=== PATIENT | female | born 1995 | race Caucasian/White ===

== ENCOUNTER 2018-11-01 09:50 | Inpatient (IN) ==
[2018-11-01] MEDS ORDERED: LIDOCAINE HCL 50 ML VIAL PERI PRN (10:54)
[2018-11-01] MEDS ORDERED: OXYTOCIN/DEXTROSE 5%-WATER 30 UNITS/500 ML BAG IV ONE ×2 (10:54→19:42)
[2018-11-01] MEDS ORDERED: RINGER'S SOLUTION,LACTATED 1,000 ML IV ONE (10:54)
[2018-11-01] MEDS ORDERED: ONDANSETRON HCL/PF 2 MG/ML VIAL IV PRN ×2 (10:54→12:09)
[2018-11-01] MEDS ORDERED: BUPIVACAINE HCL/0.9 % NACL/PF 250 ML EP PRN ×2 (12:09→12:35)
[2018-11-01] MEDS ORDERED: NALOXONE HCL 1 MG/1 ML SYRG IV PRN (12:09)
[2018-11-01] MEDS ORDERED: fentaNYL CITRATE/PF 50 MCG/ML AMPUL IT SCH (12:15)
[2018-11-01] MEDS: DEXTROSE 5%-LACTATED RINGERS 1,000 ML IV PRN ×2 (12:43→18:27)
[2018-11-01] MEDS ORDERED: BUPIVACAINE HCL/PF 30 ML VIAL EP SCH (12:45)
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
--- NOTE | 2018-11-01 12:55 | PN ---
Progess Note - Interim Date: 11/01/18 Time: 12:53 Narrative: 11/01/18 12:53 Seen at 1145 Patient requesting epidural Vital signs stable. AROM-clear at approximately 1145 FHT: 130 baseline, reassuring contractions q 2-3 min Cervix: 4/80/-2 Impression: Intrauterine at 39-1/7 weeks in labor Plan: Continue present plan
--- NOTE | 2018-11-01 13:07 | ANES ---
Anesthesia Procedure Note Procedure Note: ANESTHESIA PROCEDURE NOTE Date of Procedure: 11/01/2018. Time of procedure: 1250. Performed by: Soren Reynolds CRNA Rn Home Health: None. Preprocedure diagnosis: Active labor. Post procedure diagnosis: Same. Procedure: Insertion of labor epidural. Indications: The patient is a 23 -year-old female in active labor requesting labor epidural for pain management. Findings: See below. Details of the procedure: The patient was placed in a sitting position. DuraPrep as well as Betadine swabs X3 was applied to the patient's back. Patient was then draped in a sterile fashion. Lidocaine 1% was infiltrated to the skin and subcutaneous tissues at the level of the L3-4 interspace. The epidural space was identified using a 18-gauge Tuohy needle with [id number] technique. Epidural catheter was inserted to a depth of 9 centimeters at skin. Negative test dose was elicited using 3 mL of 1.5% preservative-free lidocaine plus epinephrine 1 200,000. The epidural catheter was then taped and secured in place. A loading dose of 8 mL of 0.25% preservative-free bupivacaine was administered to the epidural catheter after negative aspiration for blood and CSF. EBL: Minimal. Fluids: N/A. Specimen: N/A. Post procedure condition: The patient tolerated the procedure well. No complications were noted. Thank you for this consultation. Soren Reynolds CRNA
--- NOTE | 2018-11-01 13:08 | ANES ---
Post Anesthesia Assessment - Vital Signs Vitals: Last Vital Signs Temp 36.7 C 11/01/18 11:36 Pulse 90 11/01/18 11:36 Resp 16 11/01/18 11:36 BP 120/79 11/01/18 11:36 Pulse Ox 99 11/01/18 11:36 Airway Patency: Normal - Mental Status Level Of Consciousness: Awake - N/V Assessment Nausea/Vomiting Presence: None Dehydration:: No
[2018-11-01 16:33] LABS: Cocaine Ur Negative (NEGATIVE); Urine Barbiturate Negative (NEGATIVE); Urine Benzodiazepines Negative (NEGATIVE); Urine Opiates Negative (NEGATIVE); Urine PCP Negative (NEGATIVE); Urine THC Negative (NEGATIVE)
--- NOTE | 2018-11-01 18:17 | PN ---
Progess Note - Interim Date: 11/01/18 Time: 18:16 Narrative: 11/01/18 18:16 Patient comfortable with epidural Vital signs stable. Pitocin at 8 mu/min. FHT:150 baseline, reassuring Contractions q 2-3 min Cervix: 8/90/0 Impression: Intrauterine at 39-1/7 weeks in labor Plan: Anticipate normal spontaneous vaginal delivery within the next hour
[2018-11-01] MEDS ORDERED: oxyCODONE HCL/ACETAMINOPHEN 1 TAB TABLET PO PRN ×4 (18:20→19:42)
[2018-11-01] MEDS ORDERED: BENZOCAINE/MENTHOL 81 SPRAY CAN TP PRN ×2 (18:20→19:42)
[2018-11-01] MEDS ORDERED: GLYCERIN/WITCH HAZEL LEAF 40 APPL BOX TP PRN ×2 (18:20→19:42)
[2018-11-01] MEDS ORDERED: BISACODYL 10 MG SUPP.RECT RC PRN ×2 (18:20→19:42)
[2018-11-01] MEDS ORDERED: IBUPROFEN 800 MG TABLET PO PRN (18:20)
[2018-11-01] MEDS ORDERED: SENNOSIDES 8.6 MG TABLET PO PRN ×2 (18:20→19:42)
--- NOTE | 2018-11-01 19:44 | OR ---
Operative Report - Dictated Report Narrative: Spontaneous vaginal delivery of viable female crying on mother's abdomen born at 1922 on 11/01/2017 with Apgars 9 and 9, weighing 3230 g in ALYSSA position. Cord clamping delayed approximately 1 minute Placenta delivered complete, intact, with three vessel cord Estimated blood loss: less than 50 ml Anesthesia: epidural Lacerations: None History for MU Definition: * The number of deliveries resulting in a live the patient experienced prior to current hospitalization * The previous delivery of live twins or any live multiple gestation is considered one live event. *If primagravida or nulliparous is documented select zero for the number of previous live births. Live Events: 1
[2018-11-01] MEDS ORDERED: DOCUSATE SODIUM 100 MG CAPSULE PO SCH (21:00)
[2018-11-01] MEDS: IBUPROFEN 800 MG TABLET PO PRN (21:53)
[2018-11-01] MEDS: DOCUSATE SODIUM 100 MG CAPSULE PO SCH (22:30)
[2018-11-02] MEDS ORDERED: RHO(D) IMMUNE GLOBULIN 1,500 UNIT SYRINGE IM ONE (02:20)
[2018-11-02] MEDS: IBUPROFEN 800 MG TABLET PO PRN ×2 (04:07→17:15)
[2018-11-02] MEDS: DOCUSATE SODIUM 100 MG CAPSULE PO SCH ×2 (12:19→21:38)
--- NOTE | 2018-11-02 18:16 | PN ---
Subjective - Date and Time Seen Date: 11/02/18 Time: 18:15 Objective - Vitals Vitals: Last Vital Signs Temp 36.5 C 11/02/18 14:15 Pulse 83 11/02/18 14:15 Resp 18 11/02/18 14:15 BP 96/51 11/02/18 14:15 Pulse Ox 98 11/02/18 14:15 Patient denies complaints. Lochia wnl Abdomen - soft, nontender Uterus - firm, at umbilicus - 1 No calf tenderness Impression: day #1 - s/p spontaneous vaginal delivery. Plan: Continue routine care Cauti Physician Documentation - Urinary Catheter Management Urethral (Matias) Date of Insertion: 11/01/18 Time of Insertion: 13:48 Assessment/Plan - Problems/Diagnosis (1) Labor established Problem: Acute (2) Asthma Problem: Acute Qualifiers: Asthma severity: mild Asthma persistence: intermittent Asthma complication type: uncomplicated Qualified Code(s): J45.20 - Mild intermittent asthma, uncomplicated (3) Anemia Problem: Acute Qualifiers: Anemia type: iron deficiency Iron deficiency anemia type: inadequate dietary iron intake Qualified Code(s): D50.8 - Other iron deficiency anemias
[2018-11-03] MEDS: IBUPROFEN 800 MG TABLET PO PRN (08:15)
[2018-11-03] MEDS: DOCUSATE SODIUM 100 MG CAPSULE PO SCH (08:15)
[2018-11-03 08:55] VITALS: BP 121/76
--- NOTE | 2018-11-03 11:55 | PN ---
Subjective - Date and Time Seen Date: 11/03/18 Time: 11:54 Objective - Vitals Vitals: Last Vital Signs Temp 36.7 C 11/03/18 08:30 Pulse 78 11/03/18 08:30 Resp 18 11/03/18 08:30 BP 121/76 11/03/18 08:30 Pulse Ox 99 11/03/18 08:30 Patient denies complaints. Breast-feeding. Lochia wnl Abdomen - soft, nontender Uterus - firm, at umbilicus - 2 No calf tenderness Impression: day #2 - s/p spontaneous vaginal delivery. Asthma-stable Plan: Routine discharge instructions Cauti Physician Documentation - Urinary Catheter Management Urethral (Matias) Date of Insertion: 11/01/18 Time of Insertion: 13:48 Assessment/Plan - Problems/Diagnosis (1) Labor established Problem: Acute (2) Asthma Problem: Acute Qualifiers: Asthma severity: mild Asthma persistence: intermittent Asthma complication type: uncomplicated Qualified Code(s): J45.20 - Mild intermittent asthma, uncomplicated (3) Anemia Problem: Acute Qualifiers: Anemia type: iron deficiency Iron deficiency anemia type: inadequate dietary iron intake Qualified Code(s): D50.8 - Other iron deficiency anemias
== END 2018-11-03 17:40 | disposition home or self-care (01) | DRG 806 ==
LOC: OB 09:50
PROVIDERS: ADMIT Obstetrics & Gynecology; ATTEND Obstetrics & Gynecology
CPT/HCPCS: 59025; 80307; 85460; J2790